=== PATIENT | male | born 2000 | race Caucasian/White ===

== ENCOUNTER 2023-07-02 05:17 | Observation (INO) ==
[2023-07-02] MEDS ORDERED: SODIUM CHLORIDE 0.9% 1,000 ML IV SCH ×2 (05:30→07:45)
[2023-07-02] MEDS ORDERED: diphenhydrAMINE 50 MG/ML VIAL IV STA ×2 (05:34→07:37)
[2023-07-02] MEDS ORDERED: PROMETHAZINE 12.5 MG/50.5 ML BAG IV STA (05:34)
[2023-07-02 05:52] LABS: Basophils # (auto) 0.03 K/uL (0.00-0.20); Basophils % (auto) 0.3 %; Hematocrit (blood only) 45.1 % (42.0-52.0); Immature Granulocytes # (auto) 0.08 K/uL (0.01-0.20); Immature Granulocytes % (auto) 0.7 %; Lymphocytes # (auto) 1.27 K/uL (1.20-3.40); Lymphocytes % (auto) 11.1 %; Mean Corpuscular Hemoglobin 29.7 pg (25.0-34.0); Mean Corpuscular Hgb Conc 35.5 g/dL (32.0-36.0); Mean Corpuscular Volume 83.7 fL (80.0-100.0); Mean Platelet Volume 8.6 fL (9.4-12.4); Monocytes # (auto) 0.44 K/uL (0.11-0.59); Monocytes % (auto) 3.8 %; Neutrophils # (auto) 9.66 K/uL (1.40-6.50); Neutrophils % (auto) 84.1 %; Platelet Count 347 K/uL (130-400); RDW Coefficient of Variation 12.1 % (11.5-14.5); RDW Standard Deviation 36.7 fL (36.4-46.3); Red Blood Count 5.39 M/uL (4.70-6.10); White Blood Count 11.48 K/ul (4.8-10.8)
[2023-07-02 06:02] LABS: Albumin Globulin Ratio 1.7 (0.9-2); BUN Creatinine Ratio 10.7 (10-20); Bilirubin,Total 0.6 mg/dl (0.2-1.0); Calcium 10.2 mg/dl (8.6-10.3); Creatinine Clr Calc Pharmacy 89.7 ml/min; Est GFR (African American) 98.6 ml/min; Est GFR (Non-African American) 85.1 ml/min; Globulin 2.9 gm/dl (2.5-4.0); Potassium 3.5 mmol/L (3.5-5.1); Total Protein 7.9 gm/dl (6.0-8.3)
[2023-07-02] MEDS ORDERED: PANTOprazole 40 MG in SYRINGE 0 ML IV ONE (07:36)
[2023-07-02] MEDS ORDERED: PROCHLORPERAZINE 2 ML IV ONE (07:36)
[2023-07-02] MEDS ORDERED: LORazepam 1 MG/1 ML SYR ED Inj Use IV STA (07:37)
--- NOTE | 2023-07-02 07:41 | Emergency Department Note ---
History of Present Illness General Chief complaint: Vomiting Stated complaint: ALCOHOL OVERDOSE/VOMITING Time Seen by Provider: 07/02/23 05:21 History of Present Illness This is a 22-year-old male presenting to the emergency department for evaluation of nausea and vomiting. Patient did drink alcohol yesterday and does use marijuana on a daily basis. He has had persistent emesis and dry heaving for the past 6 to 8 hours. He is not to hydrate at home. The patient rates his discomfort a 9/10. He does arrive via EMS and did receive IV Zofran prehospital. This has not significantly improved his symptoms. Allergies Allergy/AdvReac Type Severity Reaction Status Date / Time No Known Allergies Allergy Unverified 07/02/23 10:13 Past Med/Surg History Medical History Tetrahydrocannabinol (THC) use disorder, mild, abuse Allergic rhinitis GERD (gastroesophageal reflux disease) Surgical History H/O tooth extraction Family History Father Hypertension Denies family history of Diabetes Thyroid disease Social History Smoking Status: Current every day smoker Tobacco Type: Cigarettes and E-cigarettes / Vaping Hx Alcohol Use: Yes Alcohol type: beer and hard liquor Alcohol Intake Frequency: 2-3 x/Week Hx Substance Use: Yes Prescribed Medications: Marijuana Last Used Substance: Days (ago) marital status: Single Current Living Situation Comment: [facility] [place] current occupational status: student Feels Safe at Home: Yes Review of Systems A total of 10 systems reviewed and were otherwise negative Physical Exam Vital Signs Vital Signs - 24 hr 07/02/23 05:20 07/02/23 05:23 07/02/23 05:39 Temperature 37.1 C Temperature Source Oral Pulse Rate 95 H 76 Pulse Rate [Right Finger] Respiratory Rate 18 Respiratory Effort / Characteristics Respiratory Depth Respiratory Pattern Blood Pressure 136/82 Blood Pressure [Right Arm] Blood Pressure Mean 100 Blood Pressure Mean [Right Arm] Blood Pressure Position [Right Arm] Pulse Oximetry 100 Oxygen Delivery Method Room Air Sepsis Recent Fever Within 48 Hours No Sepsis New/Unexplained Change in Mental Status N/A Sepsis Action Taken by Nursing No Action Required 07/02/23 07:20 07/02/23 09:38 Temperature Temperature Source Pulse Rate 87 Pulse Rate [Right Finger] 101 H Respiratory Rate 18 Respiratory Effort / Characteristics Non-Labored Spontaneous Respiratory Depth Normal Respiratory Pattern Regular Blood Pressure Blood Pressure [Right Arm] 131/82 Blood Pressure Mean Blood Pressure Mean [Right Arm] 98 Blood Pressure Position [Right Arm] Lying Pulse Oximetry 100 Oxygen Delivery Method Room Air Sepsis Recent Fever Within 48 Hours Sepsis New/Unexplained Change in Mental Status Sepsis Action Taken by Nursing VITALS: Vitals are noted on the nurse's note and reviewed by myself. Vital signs stable. GENERAL: Well-developed, well-nourished, white male, who is heaving on my arrival to the room. HEAD: Normocephalic atraumatic. EARS: External ear normal. External auditory canals clear, tympanic membranes pearly christie without erythema or effusion bilaterally. EYES: Pupils equal round and reactive to light and accommodation. Conjunctivae without injection, sclerae without icterus. Extraocular movements intact. NOSE: Patent, turbinates without inflammation or discharge. MOUTH: Mucous membranes moist. Tonsils are not enlarged. Pharynx without erythema, blood, or exudate. Uvula midline. Airway patent. NECK: Supple without nuchal rigidity. No lymphadenopathy. No thyromegaly. Cervical spine is nontender. HEART: Regular rate and rhythm without murmurs gallops or rubs. LUNGS: Clear to auscultation bilaterally without wheezes, rales or rhonchi. No retractions or accessory muscle use. ABDOMEN: Positive normal bowel sounds x 4. Soft, nontender, without masses or organomegaly. No guarding or rebound tenderness. Course Administered Medications Potassium Chloride 20 meq/ (Lactated Ringer's) 1,010 mls @ 150 mls/hr IV .Q6H44M DAVID Stop: 08/01/23 10:14 Last Infusion: 07/02/23 14:16 Dose: Infused Documented By: Infusion: 07/02/23 14:13 Dose: 150 mls/hr Documented By: Admin: 07/02/23 10:27 Dose: 150 mls/hr Documented By: CPB Nystatin (Nystatin Susp 500,000 U/5 Ml [facility]) 5 ml PO QID DAVID Stop: 07/12/23 12:59 Last Admin: 07/02/23 13:12 Dose: 5 ml Documented By: CPB Discontinued Medications Diphenhydramine HCl (Diphenhydramine 50 Mg/Ml Vial) 25 mg IV NOW STA Stop: 07/02/23 05:35 Last Admin: 07/02/23 05:38 Dose: 25 mg Documented By: MWS Diphenhydramine HCl (Diphenhydramine 50 Mg/Ml Vial) 25 mg IV NOW STA Stop: 07/02/23 07:38 Last Admin: 07/02/23 07:50 Dose: 25 mg Documented By: CPB Sodium Chloride (Nss) 1,000 mls @ 999 mls/hr IV .Q1H1M DAVID Stop: 07/02/23 06:30 Last Infusion: 07/02/23 06:55 Dose: Infused Documented By: Admin: 07/02/23 05:38 Dose: 999 mls/hr Documented By: PIERO Promethazine HCl (Phenergan) 12.5 mg in 50.5 mls @ 202 mls/hr IV NOW STA Stop: 07/02/23 05:48 Last Infusion: 07/02/23 05:49 Dose: Infused Documented By: MWPrashanth Admin: 07/02/23 05:38 Dose: 202 mls/hr Documented By: PIERO Prochlorperazine (Compazine) 2 mls @ 1 mls/min IV ONE ONE Stop: 07/02/23 07:37 Last Admin: 07/02/23 07:45 Dose: 1 mls/min Documented By: CPB Sodium Chloride (Nss) 1,000 mls @ 999 mls/hr IV .Q1H1M DAVID Stop: 07/02/23 08:45 Last Infusion: 07/02/23 12:03 Dose: Infused Documented By: Admin: 07/02/23 07:58 Dose: 999 mls/hr Documented By: CPB Pantoprazole Sodium 40 mg/ (Syringe) 10 mls @ 5 mls/min IV NOW ONE Stop: 07/02/23 07:37 Last Admin: 07/02/23 08:08 Dose: 5 mls/min Documented By: CPB Famotidine (Pepcid 20mg Iv Push) 20 mg in 5 mls @ 2.5 mls/min IV NOW STA Stop: 07/02/23 09:41 Last Admin: 07/02/23 10:25 Dose: 2.5 mls/min Documented By: CPB Lorazepam (Lorazepam 1 Mg/1 Ml Syr Ed Inj Use) 0.5 mg IV ONE STA Stop: 07/02/23 07:38 Last Admin: 07/02/23 07:55 Dose: 0.5 mg Documented By: CPB Medical Decision Making Differential Diagnosis Differential diagnosis: Etiologies such as gastroenteritis, food borne illness, infections, appendicitis, diverticulitis, inflammatory bowel disease, obstruction, GI bleed, biliary pathology, cardiac process, intracranial process, as well as others were entertained. Laboratory Data 07/02/23 05:28 07/02/23 13:08 Lab Results 07/02/23 Range/Units 05:28 WBC 11.48 H (4.8-10.8) K/ul RBC 5.39 (4.70-6.10) M/uL Hgb 16.0 (14.0-18.0) g/dl Hct 45.1 (42.0-52.0) % MCV 83.7 (80.0-100.0) fL MCH 29.7 (25.0-34.0) pg MCHC 35.5 (32.0-36.0) g/dL RDW Std Deviation 36.7 (36.4-46.3) fL RDW Coeff of Braxton 12.1 (11.5-14.5) % Plt Count 347 (130-400) K/uL MPV 8.6 L (9.4-12.4) fL Immature Gran % (Auto) 0.7 % Neut % (Auto) 84.1 % Lymph % (Auto) 11.1 % Williams % (Auto) 3.8 % Eos % (Auto) 0.0 % Baso % (Auto) 0.3 % Neut # (Auto) 9.66 H (1.40-6.50) K/uL Lymph # (Auto) 1.27 (1.20-3.40) K/uL Williams # (Auto) 0.44 (0.11-0.59) K/uL Eos # (Auto) 0.00 (0.00-0.50) K/uL Baso # (Auto) 0.03 (0.00-0.20) K/uL Immature Gran # (Auto) 0.08 (0.01-0.20) K/uL Sodium 138 (136-145) mmol/L Potassium 3.5 (3.5-5.1) mmol/L Chloride 102 (98-107) mmol/L Carbon Dioxide 20 L (21-32) mmol/L Anion Gap 16 H (3-11) BUN 13 (6-23) mg/dl Creatinine 1.21 (0.6-1.4) mg/dl Est Cr Clr Drug Dosing 89.7 ml/min Est GFR ( Amer) 98.6 ml/min Est GFR (Non-Af Amer) 85.1 ml/min BUN/Creatinine Ratio 10.7 (10-20) Glucose 145 H (70-99(Fasting)) mg/dl Calcium 10.2 (8.6-10.3) mg/dl Phosphorus 2.8 (2.5-4.9) mg/dl Magnesium 1.9 (1.7-2.4) mg/dl Total Bilirubin 0.6 (0.2-1.0) mg/dl AST 23 (13-39) U/L ALT 16 (7-52) U/L Alkaline Phosphatase 65 (34-104) U/L Total Protein 7.9 (6.0-8.3) gm/dl Albumin 5.0 (3.4-5.0) gm/dl Globulin 2.9 (2.5-4.0) gm/dl Albumin/Globulin Ratio 1.7 (0.9-2) Lipase 15 (11-82) U/L TSH 2.399 (0.300-4.500) uIu/ml Ethyl Alcohol mg/dL < 10.0 (<10.0) mg/dl MDM Narrative Physical exam and history were performed. Nursing notes, EMR, and Medication List were personally reviewed. No social concerns were identified as barriers to patients care. Patient appears to have nausea and vomiting bringing him to the ER. He did receive Zofran prehospital but continues with dry heaving. IV access has been established and labs obtained. Patient was hydrated with 2 L normal saline. He was given additional antiemetics with IV Benadryl and IV Phenergan. Patient's blood work is as above and was reviewed. He does not have a significantly elevated white blood cell count, gross anemia, bandemia, or significant electrolyte imbalance. Lipase and transaminases are not diagnostic. Alcohol is not detected. Urine is without evidence of infection. Patient was reevaluated all times over the course of his stay. He continued with persistent dry heaving despite antiemetics at this point. I did give him Compazine, Benadryl, Ativan, and Protonix. I did speak with the patient's mother on the patient's cell phone, and she indicated that she would be coming to the hospital, however she lives several hours away and will return later this morning. Patient remained in stable condition until the time of shift change. Case was discussed with my colleague, Alice Byrd PA-C, who will assume care at this time. Please see Ms. Byrd's dictation for further patient course, plan, and disposition. The chart was completed utilizing [employer] Speech Voice Recognition Software. Grammatical errors, random word insertions, pronoun errors, and incomplete sentences are an occasional consequence of this system due to software limitations, ambient noise, and hardware issues. Any formal questions or concerns about the content, text, or information contained within the body of this dictation should be directly addressed to the provider for clarification. . Impression & Plan Intractable vomiting with nausea, Tetrahydrocannabinol (THC) use disorder, mild, abuse, Episode of binge consumption of alcohol Discharge Plan Visit Data Chief Complaint: Vomiting Stated Complaint: ALCOHOL OVERDOSE/VOMITING ED Provider: Jo [facility] ED Midlevel Provider: Alice Byrd Discharge Problem: Intractable vomiting with nausea, Tetrahydrocannabinol (THC) use disorder, mild, abuse, Episode of binge consumption of alcohol Patient Disposition: Against Medical Advice Discharge Instructions Interventions: ED Discharge Assessment Last Done: 07/02/23 10:46 ED AMA/LWBS Discharge Assessment Last Done: 07/02/23 14:25
--- NOTE | 2023-07-02 07:48 | Emergency Department Note ---
ED Visit Note Received the patient in signout from Luis Weber PA-C. In short, patient presents with intractable nausea and vomiting. He does admit to alcohol and marijuana use last night. Please see Luis's dictation regarding full history and physical examination. Between EMS while in route and here in the emergency department, the patient has already received 1 dose of Zofran, at least 1 L of IV fluids, Benadryl, and Phenergan. The patient was continuing to complain of severe nausea and vomiting. He was ordered Compazine, additional Benadryl, Ativan, Protonix, and a second liter of IV fluids. I reassessed the patient. He notes he is feeling no better. His vomiting has subsided, but he continues to be nauseated. The patient states he does not feel comfortable going home and would prefer to stay in the hospital due to concern that his symptoms will recur. I briefly reevaluated the patient. He is not experiencing any focal tenderness in his abdomen. He is still tachycardic. He is not hypotensive. The patient is not febrile. I discussed the case with the feed mill manager I discussed the case with Dr. Franco, [facility] hospitalist physician. He did agree to see and evaluate the patient for admission. Please see hospitalist dictation regarding ongoing management care of this patient
[2023-07-02] MEDS ORDERED: FAMOTIDINE 20MG IV PUSH 20 MG/5 ML SYR IV STA (09:40)
--- NOTE | 2023-07-02 09:41 | History & Physical Report ---
Date of Service July 02, 2023 Assessment & Plan (1) Intractable vomiting with nausea: Plan: Suspect gastritis from heavy alcohol abuse. No evidence of cholecystitis, pancreatitis, or other process. LFTs, lipase wnl. Check a u/a. Can't rule out cannabis hyperemesis syndrome given his frequent THC use but low suspicion for such. Zofran prn. If zofran not effective then reglan prn. Checked baseline EKG to ensure QTc is satisfactory - QTc is mildly prolonged. Checked a KUB xray to ensure no obstruction - this returned normal. Check a TSH - r/o hyperthyroidism contributing to symptoms but I doubt such. Check a mag level now. NPO for now; perhaps clear liquids later today if N/V continue to improve. (2) Gastritis: Plan: Suspect he has gastritis from heavy alcohol consumption yesterday. He also drinks on other days. Plan PPI IV twice daily. s/p pepcid x 1 in ER. Anti-emetics. The small speck of blood was likely from retching and, if esophagitis or gastritis is present, could have enough irritation to produce a minor amount of blood. H/H are stable at time of ER presentation. (3) Episode of binge consumption of alcohol: Plan: 7+ drinks yesterday. Drinks heavily on other days of the week as well. Will pastoral counselor about dangers of heavy etoh consumption. (4) Tetrahydrocannabinol (THC) use disorder, mild, abuse: Plan: Frequent use of such, sometimes daily. Can't rule out element of THC hyperemesis syndrome. (5) GERD (gastroesophageal reflux disease): Plan: Known history of such. Cont PPI. (6) Hyperglycemia: Plan: Glucose 145. May simply have been stress from illness. Repeat BSG - 100. Check hemoglobin a1c to be complete. Plan Place on observation status. History of Present Illness Chief Complaint: intractable vomiting Primary Care Provider: NO PCP 22yo male with history of GERD and chronic alcohol with tobacco/THC use presents to the ER with intractable vomiting starting yesterday evening. Patient reports he is attending [employer] and was in town visiting friends for the [employer] football game. He attended the game and did partake in drinking alcohol throughout the day. He had at least 7 drinks - beer, along with vodka. He drinks several days each week at [employer]. He stopped drinking about 7-8pm last night. About 8pm yesterday pm he began to vomit. Initially it was stomach contents (he ate Chipot[employer] at about 5pm) that he vomited up, then it ultimately became clear liquid. He had one "speck" of red in one of the emesis episodes. He was vomiting constantly all night (every 30 minutes or more). No bilious emesis. Complains of a burning sensation over the high epigastric region. He reports that he had GERD as a child and even underwent upper endoscopy for such. He took GERD meds for several years then stopped. In the ER he received copious amounts of antiemetics including - -50mg of benadryl IV -0.5mg of ativan IV -1 dose of compazine IV -1 dose of phenergan IV -protonix IV x 1 -2 saline boluses of 1 liter each I ordered a dose of IV pepcid 20mg as well. Allergies Allergy/AdvReac Type Severity Reaction Status Date / Time No Known Allergies Allergy Unverified 07/02/23 10:13 Past Med/Surg History Medical History Tetrahydrocannabinol (THC) use disorder, mild, abuse Allergic rhinitis GERD (gastroesophageal reflux disease) Surgical History H/O tooth extraction Family History Father Hypertension Denies family history of Diabetes Thyroid disease Social History Smoking Status: Current every day smoker Tobacco Type: Cigarettes and E-cigarettes / Vaping Hx Alcohol Use: Yes Alcohol type: beer and hard liquor Alcohol Intake Frequency: 2-3 x/Week Hx Substance Use: Yes Prescribed Medications: Marijuana Last Used Substance: Days (ago) marital status: Single Current Living Situation Comment: [employer] [facility] [place] current occupational status: student Feels Safe at Home: Yes Review of Systems Review of Systems: gen - no fevers, no weight loss; chills with the vomiting HENT - no ear pain, no runny nose; sore throat - frequent CV - no chest pain pulm - no cough or congestion GI - intractable vomiting; no diarrhea; upper abdominal discomfort; 1 speck of ?blood - nocturia, 4-5 times each night - chronic; daytime frequency as well; no dysuria musculo - no joint pains, no myalgias neuro - no headache endo - no h/o diabetes skin - no rashes Physical Exam Physical Exam: gen - thin, looks uncomfortable; but awake/alert eyes - PERRL mouth - ?thrush plaques on buccal mucosa and palate?; MM dry heart - tachy, s1 s2, no murmur lungs - CTA b/l abd - soft, mildly tender epigastric region, BS+, no HSM, nondistended ext - no edema, pulses 2+ b/l neuro - DTRs 2+ b/l, normal strength upper and lower extremities skin - no rash psych - a/o x 3 musculo - no joint effusions Results & Data Results & Data Vital Signs (Past 12 Hours) Vital Signs Temp Pulse Pulse Resp BP BP Pulse Ox 07/02/23 09:38 87 07/02/23 07:20 101 H 18 131/82 100 07/02/23 05:39 76 18 136/82 100 07/02/23 05:23 37.1 C 07/02/23 05:20 95 H O2 Del Method 07/02/23 09:38 07/02/23 07:20 Room Air 07/02/23 05:39 Room Air 07/02/23 05:23 07/02/23 05:20 Laboratory Results Laboratory Results - last 24 hr 07/02/23 07/02/23 07/02/23 05:28 10:10 10:24 WBC 11.48 H RBC 5.39 Hgb 16.0 Hct 45.1 MCV 83.7 MCH 29.7 MCHC 35.5 RDW Std Deviation 36.7 RDW Coeff of Braxton 12.1 Plt Count 347 MPV 8.6 L Immature Gran % (Auto) 0.7 Neut % (Auto) 84.1 Lymph % (Auto) 11.1 [place] % (Auto) 3.8 Eos % (Auto) 0.0 Baso % (Auto) 0.3 Neut # (Auto) 9.66 H Lymph # (Auto) 1.27 [place] # (Auto) 0.44 Eos # (Auto) 0.00 Baso # (Auto) 0.03 Immature Gran # (Auto) 0.08 Sodium 138 Potassium 3.5 Chloride 102 Carbon Dioxide 20 L Anion Gap 16 H BUN 13 Creatinine 1.21 Est Cr Clr Drug Dosing 89.7 Est GFR ( Amer) 98.6 Est GFR (Non-Af Amer) 85.1 BUN/Creatinine Ratio 10.7 Glucose 145 H POC Glucose 100 H Calcium 10.2 Total Bilirubin 0.6 AST 23 ALT 16 Alkaline Phosphatase 65 Total Protein 7.9 Albumin 5.0 Globulin 2.9 Albumin/Globulin Ratio 1.7 Lipase 15 Ethyl Alcohol mg/dL < 10.0 SARS-CoV-2, RNA, NAAT Pending Diagnostic Findings KUB X-Ray 07/02/23 10:25 KUB HISTORY: intractable vomiting COMPARISON: None. FINDINGS: The bowel gas pattern is unremarkable. There are no dilated loops of small bowel to suggest an obstruction. No renal calculi. No ureteral calculi. No pneumoperitoneum or pneumatosis. IMPRESSION: Nonobstructive bowel gas pattern. ACT 112: Negative or not required by law. Electronically signed by: Octavio Baker M.D. 07/02/2023 11:05 AM EKG - my reading - NSR, ?U waves, mildly prolonged QTc PG Care Time/CCT Total # of Minutes Spent Total Time Spent with Patient: Total time spent is greater than 50% in coordination of care (as documented) at patient's floor/unit and/or counseling patient: Coding Level of Care Code 65575 INT INP/OBS CARE 2/55MIN Diagnoses Intractable vomiting with nausea R11.2 Gastritis K29.70 Episode of binge consumption of alcohol Z78.9 Tetrahydrocannabinol (THC) use disorder, mild, abuse F12.10 GERD (gastroesophageal reflux disease) K21.9 Hyperglycemia R73.9
[2023-07-02] MEDS ORDERED: POTASSIUM CHLORIDE 20 MEQ in LACTATED RINGER'S 1,000 ML IV SCH (10:15)
[2023-07-02 10:47] LABS: Appearance Urine Clear (Clear); Bilirubin Urine Negative (Negative); Blood Urine Negative (Negative); Color Urine Yellow; Glucose Urine UA Negative (Negative); Ketones Urine 1+ (Negative); Leukocyte Esterase Urine Negative (Negative); Nitrite Urine Negative (Negative); Protein Urine Negative (Negative); Specific Gravity Urine 1.012 (1.000-1.030); Urobilinogen Urine Negative (Negative); pH Urine 7.5 (4.5-7.5)
[2023-07-02] MEDS ORDERED: ACETAMINOPHEN 325 MG TAB PO PRN (10:57)
[2023-07-02] MEDS ORDERED: ONDANSETRON INJ 2 MG/ML 2 ML VIAL IV PRN (10:57)
--- NOTE | 2023-07-02 11:07 | XRay Report ---
KUB HISTORY: intractable vomiting COMPARISON: None. FINDINGS: The bowel gas pattern is unremarkable. There are no dilated loops of small bowel to suggest an obstruction. No renal calculi. No ureteral calculi. No pneumoperitoneum or pneumatosis. IMPRESSION: Nonobstructive bowel gas pattern. ACT 112: Negative or not required by law. Electronically signed by: Octavio Baker M.D. 07/02/2023 11:05 AM
[2023-07-02 11:11] LABS: Magnesium 1.9 mg/dl (1.7-2.4)
[2023-07-02 11:16] LABS: Phosphorus 2.8 mg/dl (2.5-4.9)
[2023-07-02 11:39] LABS: Thyroid Stimulating Hormone 2.399 uIu/ml (0.300-4.500)
[2023-07-02] MEDS ORDERED: NYSTATIN SUSP 500,000 U/5 ML UDC PO SCH (13:00)
[2023-07-02 13:21] LABS: Base Excess VBG -1.5 mEq/L; HCO3 VBG 22 mmol/L; Oxygen Saturation VBG 99.8 %; PCO2 VBG 32 mmHg (38-50); PO2 VBG 136 mmHg; pH VBG 7.44 (7.36-7.41)
[2023-07-02 13:41] LABS: BUN Creatinine Ratio 9.6 (10-20); Calcium 9.7 mg/dl (8.6-10.3); Creatinine Clr Calc Pharmacy 104.4 ml/min; Est GFR (African American) 118.4 ml/min; Est GFR (Non-African American) 102.2 ml/min; Potassium 4.1 mmol/L (3.5-5.1)
[2023-07-02] MEDS ORDERED: PANTOprazole 40 MG in SYRINGE 0 ML IV SCH (21:00)
--- NOTE | 2023-07-02 21:35 | Discharge Summary ---
Date of Service July 02, 2023 Admission HPI Per Admitting Provider 22yo male with history of GERD and chronic alcohol with tobacco/THC use presents to the ER with intractable vomiting starting yesterday evening. Patient reports he is attending [facility] [employer] and was in town visiting friends for the [employer] football game. He attended the game and did partake in drinking alcohol throughout the day. He had at least 7 drinks - beer, along with vodka. He drinks several days each week at [facility]. He stopped drinking about 7-8pm last night. About 8pm yesterday pm he began to vomit. Initially it was stomach contents (he ate [employer]ipot[employer] at about 5pm) that he vomited up, then it ultimately became clear liquid. He had one "speck" of red in one of the emesis episodes. He was vomiting constantly all night (every 30 minutes or more). No bilious emesis. Complains of a burning sensation over the high epigastric region. He reports that he had GERD as a child and even underwent upper endoscopy for such. He took GERD meds for several years then stopped. In the ER he received copious amounts of antiemetics including - -50mg of benadryl IV -0.5mg of ativan IV -1 dose of compazine IV -1 dose of phenergan IV -protonix IV x 1 -2 saline boluses of 1 liter each I ordered a dose of IV pepcid 20mg as well. Discharge Data Allergies Allergy/AdvReac Type Severity Reaction Status Date / Time No Known Allergies Allergy Unverified 07/02/23 10:13 Consultations 07/02/23 09:11 ED Decision to Admit Stat Discharge Plan Discharge Items Patient Disposition: Against Medical Advice Reason For Visit: INTRACTABLE VOMITING Follow-up/Referrals: PCP,NO [Primary Care Provider] - Stand-Alone Forms: [facility], Smoking Cessation Admission Data Admit Date/Time: 07/02/23 09:40 Attending Provider: Vahid Velez Admit Provider: Vahid Velez Primary Care Provider: PCP,NO Other Providers: Vahid Velez Coding
--- NOTE | 2023-07-03 06:19 | Electrocardiogram Report ---
Test Reason : Blood Pressure : / mmHG Vent. Rate : 083 BPM Atrial Rate : 083 BPM P-R Int : 112 ms QRS Dur : 090 ms QT Int : 408 ms P-R-T Axes : 054 088 075 degrees QTc Int : 479 ms Normal sinus rhythm with sinus arrhythmia Nonspecific T wave abnormality Prolonged QT vs prominent U waves Abnormal ECG No previous ECGs available Confirmed by Rashid Mclaughlin ([id number]) on 07/03/2023 6:19:20 AM Referred By: REFERRED SELF Confirmed By:Rashid Mclaughlin
[2023-07-03 08:52] LABS: Estimated Average Glucose 105 mg/dl; Hemoglobin A1C 5.3 % (4.5-5.6)
[2023-07-03] MEDS ORDERED: FLUoxetine HCL 20 MG CAP PO SCH (09:00)
== END 2023-07-02 14:30 | disposition left against medical advice (07) ==
LOC: EDINP 05:17 → ED 05:17 → EDINP 10:46